=== PATIENT | male | born 1965 | race American Indian/Alaskan Native ===

== ENCOUNTER 2020-07-26 17:03 | Emergency (ER) | payer MEDICARE ==
[2020-07-26 20:04] VITALS: BP 197/103
--- NOTE | 2020-07-26 20:54 | Emergency Department Report ---
ED Head Trauma HPI - General Chief complaint: Headache Stated complaint: HEAD INJURY Time Seen by Provider: 07/26/20 20:49 Source: patient Mode of arrival: Ambulatory Limitations: No Limitations - History of Present Illness MD Complaint: head injury -: Sudden (16:00 today) Mechanism of Injury: other (heavy boxes were over 10 feet above head in store and fell off shelf landing on his head causing headache and dizziness. ) - Related Data Previous Rx's Medication Instructions Recorded Last Taken Type traMADoL [Ultram] 50 mg PO Q6HR PRN #14 tablet 07/26/20 Unknown Rx ED Review of Systems ROS: Stated complaint: HEAD INJURY Other details as noted in HPI ED Past Medical Hx - Past Medical History Previous Medical History?: Yes Hx Asthma: Yes Hx Dementia: Yes - Surgical History Past Surgical History?: Yes Additional Surgical History: B/L Ankle wrist knee and elbow - Social History Smoking Status: Current Every Day Smoker Substance Use Type: Alcohol - Medications Home Medications: Home Medications Medication Instructions Recorded Confirmed Last Taken Type traMADoL [Ultram] 50 mg PO Q6HR PRN #14 tablet 07/26/20 Unknown Rx ED Physical Exam - General Limitations: No Limitations ED Course Vital Signs 07/26/20 20:01 Temperature 98.4 F Pulse Rate 66 Respiratory 18 Rate Blood Pressure 197/103 O2 Sat by Pulse 97 Oximetry - Radiology Data Radiology results: report reviewed [address] [place] [address] Cat Scan Report Signed Patient: CHEMA GARIBAY MR#: [id number] : 1965 Acct:[id number] Age/Sex: 54 / M ADM Date: 07/26/20 Loc: ED Attending Dr: Ordering Physician: AMBROCIO RUSSELL Date of Service: 07/26/20 Procedure(s): CT head/brain wo con Accession Number(s): [id number] cc: AMBROCIO RUSSELL NONENHANCED CT SCAN OF THE HEAD: INDICATION / CLINICAL INFORMATION: 54 years Male; Patient states head trauma, presynope. TECHNIQUE: Routine CT head without contrast. All CT scans at this location are performed using CT dose reduction for ALARA by means of automated exposure control. COMPARISON: None. FINDINGS: BRAIN / INTRACRANIAL CONTENTS: No intracranial sequela from the trauma; focal left lateral convexity scalp hematoma; no air-fluid level in the visualized portions of the paranasal sinuses No acute hemorrhage, mass effect, midline shift, hydrocephalus, or acute, large territorial infarct. No chronic infarct or focal atrophy. Normal brain volume and ventricular/sulcal size for age. No significant white matter abnormality. CRANIOCERVICAL JUNCTION: No significant abnormality. ORBITS: No significant abnormality of visualized orbits. SINUSES / MASTOIDS: No significant abnormality of the visualized paranasal sinuses or mastoid air cells. ADDITIONAL FINDINGS: None. IMPRESSION: No intracranial sequela from the trauma Signer Name: Anjelica Hanks MD Signed: 07/26/2020 10:07 PM Workstation Name: [id number] Transcribed By: BS Dictated By: Anjelica Grossman MD Electronically Authenticated By: Anjelica Grossman MD Signed Date/Time: 07/26/202206 DD/ 04 TD/TT: - Medical Decision Making 54-year-old F [place] male status post head trauma with boxes that fell onto the head presents to emergency department for evaluation. Current Jose coma scale 15. Does have large occiput to hematoma. No skull crepitance or stepoff. No Peck sign. No raccoon eyes. No fluid from nose or ears. No nasal septal hematoma. No open wounds. No cervical spine tenderness. CT scan performed to evaluate for any intracranial injury or skull fracture. Patient is protecting airway and otherwise has an unremarkable secondary trauma survey. Given instructions regarding supportive care including pain meds as needed, return precautions, follow-up with primary physician. Critical care attestation.: If time is entered above; I have spent that time in minutes in the direct care of this critically ill patient, excluding procedure time. ED Disposition Clinical Impression: Head injury, Cephalgia Disposition: DC-01 TO HOME OR SELFCARE Is pt being admited?: No Does the pt Need Aspirin: No Condition: Stable Instructions: How to Use Cold Therapy, Head Injury, Adult, [id number], Post- Concussion Syndrome Prescriptions: traMADoL [Ultram] 50 mg PO Q6HR PRN #14 tablet PRN Reason: Pain Referrals: PRIMARY CARE, [Primary Care Provider] - 3-5 Days
--- NOTE | 2020-07-26 22:12 | Cat Scan Report ---
NONENHANCED CT SCAN OF THE HEAD: INDICATION / CLINICAL INFORMATION: 54 years Male; Patient states head trauma, presynope. TECHNIQUE: Routine CT head without contrast. All CT scans at this location are performed using CT dos e reduction for ALARA by means of automated exposure control. COMPARISON: None. FINDINGS: BRAIN / INTRACRANIAL CONTENTS: No intracranial sequela from the trauma; focal left lateral convexity scalp hematoma; no air-fluid level in the visualized portions of the paranasal sinuses No acute hemorrhage, mass effect, midline shift, hydrocephalus, or acute, large territorial infarct. No chronic infarct or focal atrophy. Normal brain volume and ventricular/sulcal size for age. No sig nificant white matter abnormality. CRANIOCERVICAL JUNCTION: No significant abnormality. ORBITS: No significant abnormality of visualized orbits. SINUSES / MASTOIDS: No significant abnormality of the visualized paranasal sinuses or mastoid air dianne ls. ADDITIONAL FINDINGS: None. IMPRESSION: No intracranial sequela from the trauma Signer Name: Anjelica Hanks MD Signed: 07/26/2020 10:07 PM Workstation Name: [id number]
== END 2020-07-26 23:40 | disposition home or self-care (01) ==
LOC: ED 17:03
DX: S09.90XA Unspecified injury of head, initial encounter (principal); R51.9 Headache, unspecified; F03.90 Unspecified dementia, unspecified severity, without behavioral disturbance, psychotic disturbance, mood disturbance, and anxiety; J45.909 Unspecified asthma, uncomplicated; F17.200 Nicotine dependence, unspecified, uncomplicated; Z98.890 Other specified postprocedural states; Z79.899 Other long term (current) drug therapy; W18.30XA Fall on same level, unspecified, initial encounter; Y93.89 Activity, other specified; Y92.89 Other specified places as the place of occurrence of the external cause; Y99.8 Other external cause status
CPT/HCPCS: 70450